=== PATIENT | male | born 1970 | race Caucasian/White ===

== ENCOUNTER 2017-01-07 03:43 | Emergency (ER) | payer MEDICAID ==
[~2017-01-07] VITALS: Ht 175.3 cm; Wt 77.1 kg
--- NOTE | 2017-01-07 03:55 | NUR ---
Patient walked into er, pt brought in by friend for possible overdose. Patient states friend came to his house last night and brought "china white" drug. Soon after patient had no recollection of what happen. Patient c/o nausea upon arrival. pt alert, oriented x 4, no resp distress noted or reported upon assessment... md at bedside...
[2017-01-07] MEDS ORDERED: ONDANSETRON ODT 4 MG TAB.RAPDIS SL ONE (04:15)
[2017-01-07] MEDS ORDERED: ONDANSETRON ODT 4 MG TAB.RAPDIS ONE (04:23)
--- NOTE | 2017-01-07 04:27 | NUR ---
Patient discharged to home in stable conditon. Written and verbal after care instructions given. Patient verbalizes understanding of instructions. pt walked out of ER unassisted with belongings and friend at side...
[2017-01-07 04:28] VITALS: BP 135/79
== END 2017-01-07 04:29 | disposition home or self-care (01) ==
LOC: ER 03:50
DX: R11.2 Nausea with vomiting, unspecified (principal); F19.10 Other psychoactive substance abuse, uncomplicated
CPT/HCPCS: A4663; Q0162